=== PATIENT | female | born 1995 | race African-American/Black ===

== ENCOUNTER 2023-01-20 15:40 | Emergency (ER) | payer SELFPAY ==
[~2023-01-20] VITALS: Ht 167.6 cm; Wt 72.6 kg
== END 2023-01-20 17:53 | disposition home or self-care (01) ==
LOC: ER 15:46
DX: S66.811A Strain of other specified muscles, fascia and tendons at wrist and hand level, right hand, initial encounter (principal); X50.1XXA Overexertion from prolonged static or awkward postures, initial encounter; Y99.0 Civilian activity done for income or pay
CPT/HCPCS: 99283